=== PATIENT | male | born 1945 | race Caucasian/White ===

== ENCOUNTER 2017-11-08 11:42 | Inpatient (IN) | payer OTHER ==
[~2017-11-08] VITALS: Ht 177.8 cm; Wt 79.2 kg
--- NOTE | 2017-11-08 13:20 | ED ANIMAL BITE/WOUND CHECK ---
History of Present Illness General Chief Complaint: Animal/Insect Bite Stated Complaint: DOG BITE Source: patient Exam Limitations: no limitations Vital Signs & Intake/Output Vital Signs & Intake/Output Vital Signs Date Time Temp Pulse Resp B/P B/P Pulse O2 O2 Flow FiO2 Mean Ox Delivery Rate 11/08 1641 98.9 68 20 138/84 99 Room Air 11/08 1438 98.7 92 18 144/84 98 Room Air 11/08 1205 99.8 99 18 147/81 98 Room Air Allergies Coded Allergies: NO KNOWN ALLERGIES (11/08/17) Triage Note: 72M SUSTAINED DOG BITE, DOG KNOWN TO PT AND UTD WITH SHOTS. LAST TETANUS 7-8 YEARS AGO. PUNCTURE TO RIGHT HAND AND SWELLING. DENIES PAIN AT THIS TIME. AGITATED WITH THIS RN WHEN DISCUSSING RECOMMENDATIONS FOR XRAY AND THAT THEY ONLY WANT IV ANTIBIOTICS. WHEN OFFERED TYLENOL OR MOTRIN PT DECLINED AND SAID "UNASYN WOULD BE GOOD." IV ANTIBIOTICS. WHEN OFFERED TYLENOL OR MOTRIN PT DECLINED AND SAID "UNASYN WOULD BE GOOD." Triage Nurses Notes Reviewed? yes Onset: Gradual Duration: day(s): (1) Timing: no prior history Injury Environment: home Is Injury an Animal Bite? Yes Animal Type: dog, family pet Context of Animal Attack: playing with animal Appearance of Animal: appeared well Animal Immunization Status: up to date Severity: moderate Modifying Factors: Improves With: immobilization. Worsens With: movement. HPI: Patient is a 72-year-old male presenting to the emergency Department chief complaint of right hand pain, swelling and redness worsening since yesterday. Patient reports that he was bitten by family dog who is up-to-date with immunizations. Patient reports that he had his tetanus vaccination 8 years ago. Patient reports mild pain with movement to the right hand. Was seen in a walk- in clinic today who sent to the ER for evaluation. Patient denies taking anything at home to help with symptoms. No nausea or vomiting. Denies chest pain palpitations or shortness of breath. He claims the wound out immediately with peroxide and water. Patient also noticed increasing redness up his arm this morning. No malaise. Eating well drinking well. No history of diabetes. (Luis Antonio SALGUERO,Keysha) Reconcile Medications Aspirin (Ecotrin*) 81 MG TABLET.DR 1 TAB PO DAILY HEART HEALTH (Reported) Atorvastatin Calcium 10 MG TABLET 1 TAB PO DAILY HEART HEALTH (Reported) Multivit-Min/FA/Lycopen/Lutein (Centrum Silver Men Tablet) 300 MCG-600 MCG-300 MCG TABLET 1 TAB PO DAILY GENERAL WELLNESS (Reported) (Kate BUCK,Kendrick Spear) Past History Travel History Traveled to [place] past 21 day No Medical History Any Pertinent Medical History? see below for history Neurological: NONE EENT: NONE Cardiovascular: CARDIAC STENT HEART BLOCK Respiratory: NONE Gastrointestinal: NONE Hepatic: NONE Renal: NONE Musculoskeletal: NONE Psychiatric: NONE Endocrine: NONE Surgical History Surgical History: non-contributory Psychosocial History What is your primary language Scottish Tobacco Use: Never used Family History Hx Contributory? No (Keysha Smyth) Review of Systems Review of Systems Constitutional: Reports: no symptoms. Comments Review of systems: See HPI, All other systems negative. Constitutional, no chills fever or weight loss HEENT: No visual changes no sore throat no congestion Cardiovascular: No chest pain ,palpitation , orthopnea or ankle swelling Skin, no jaundice Respiratory: No dyspnea cough sputum or hemoptysis GI: No nausea no vomiting Muscle skeletal: no back pain, no neck pain, Neurologic: No numbness no confusion Psych: No stress anxiety Immunology: No splenectomy or history of AIDS (Keysha Smyth) Physical Exam Physical Exam General Appearance: well developed/nourished, no apparent distress, alert, awake , comfortable Comments: Well-developed well-nourished person in no acute distress HEENT: Atraumatic, normocephalic. Neck: Normal inspection Back: Nontender Cardiovascular: Regular rate and rhythms no murmurs rubs or gallops, normal JVP Respiratory: Chest nontender. No respiratory distress.breath sounds clear to auscultation bilaterally Extremity: Moderate edema noted over the right thenar eminence of the right hand. Full range of motion of right hand and all digits on the right hand without difficulty or pain. Argon Tester strength is equal and symmetric bilaterally. Radial pulses are 2+ bilaterally. There are 4-6 healing puncture wounds noted in this area. Streaking noted up to the right antecubital fossa. Neuro: Alert oriented x3, motor sensory normal Skin: Moderate erythema over the thenar eminence of the right hand, puncture wounds that appear to be healing over the thenar eminence of the right hand. Red streaking noted up to the right antecubital fossa. Moderately warm to palpation over this area. Psych: Mood and affect is normal, memory and judgment is normal. (Luis Antonio SALGUERO,Keysha) Progress Differential Diagnosis: cellulitis, sepsis, dog bite Plan of Care: Orders Procedure Date/time Status Heart Healthy Diet 11/08 D Active Patient Data 11/08 1532 Active ED Holding Orders 11/08 1523 Active Admit to inpatient 11/08 1523 Active Vital Signs 11/08 1523 Active Code Status 11/08 1523 Active LACTIC ACID 11/08 1413 Complete Add-on Test (ER Only) 11/08 1353 Active Intake & Output 11/08 1309 Active BLOOD CULTURE 11/08 1253 Active BLOOD CULTURE 11/08 1234 Active WESTERGREN SED RATE 11/08 1234 Complete COMPREHENSIVE METABOLIC PANEL 11/08 1234 Complete CBC WITHOUT DIFFERENTIAL 11/08 1234 Complete Laboratory Tests 11/08/17 1419: Lactic Acid 0.8 11/08/17 1310: Anion Gap 15, Estimated GFR > 60, BUN/Creatinine Ratio 23.8, Glucose 96, Calcium 9.3, Total Bilirubin 0.7, AST 28, ALT 39, Alkaline Phosphatase 83, Total Protein 8.1, Albumin 4.6, Globulin 3.5, Albumin/Globulin Ratio 1.3, CBC w Diff NO MAN DIFF REQ, RBC 4.90, MCV 88.3, MCH 30.9, MCHC 35.0, RDW 13.4, MPV 10.1, Gran % 77.2 H, Lymphocytes % 13.7 L, Monocytes % 8.5, Eosinophils % 0.2, Basophils % 0.4, Absolute Granulocytes 7.3 H, Absolute Lymphocytes 1.3, Absolute Monocytes 0.8 H, Absolute Eosinophils 0, Absolute Basophils 0, ESR Westergren 8 Microbiology 11/08 1310 BLOOD: Blood Culture - RECD 11/08 1300 BLOOD: Blood Culture - RECD 11/08 1300 BLOOD: Blood Culture - ORD Spoke with Dr. Boyle, plastics, he will see the patient tomorrow in consult. Recommending IV antibiotics, also recommending a postoperative-type pillow to help him. Try to obtain his pillow from the operating room without success. Patient informed of all imaging results and lab work results. Patient will be for cellulitis. D/W DR WHARTON AND HE AGREES WITH PLAN. Diagnostic Imaging: Viewed by Me: Radiology Read. Discussed w/RAD: Radiology Read. Radiology Impression: PATIENT: SHANE REDMOND PRESENT AGE: 72 PATIENT ACCOUNT NO: [id number] : 46 LOCATION: [facility] ORDERING PHYSICIAN: Keysha SALGUERO SERVICE DATE: 11/08/17 EXAM TYPE: RAD - XRY-HAND, RIGHT EXAMINATION: XR HAND, RIGHT CLINICAL INFORMATION: Dog bite. Cellulitis. COMPARISON: None TECHNIQUE: PA, lateral, and oblique views of the right hand. FINDINGS: No fracture or malalignment. Joint spacing is preserved. No radiopaque foreign body. 2 small foci of scattered subcutaneous air projecting over the distal aspect of the second metatarsal shaft. IMPRESSION : There are a few small scattered foci of subcutaneous air projecting over the mid to distal aspect of the second metatarsal shaft. No fracture or radiopaque foreign body. DICTATED BY: Marino Mendoza MD DATE/TIME DICTATED:11/08/171431 WORKFORCE PLANNER:JAYLEEN DATE/TIME TRANSCRIBED:11/08/171431 CONFIDENTIAL, DO NOT COPY WITHOUT APPROPRIATE AUTHORIZATION. <Electronically signed in Other Vendor System> SIGNED BY: Marino Mendoza MD 11/08/17 4515 (Keysha Smyth) Departure Departure Time of Disposition: 1555 Disposition: STILL A PATIENT Condition: Stable Clinical Impression Primary Impression: Cellulitis Qualifiers: Site of cellulitis: extremity Site of cellulitis of extremity: upper extremity Laterality: right Qualified Code: L03.113 - Cellulitis of right upper limb Referrals: Ha BUCK,David Spear (PCP/Family) Departure Forms: Customer Survey General Discharge Information Admission Note Documentation of Exam: Documentation of any treatments & extenuating circumstances including Concerns Regarding Discharge (functional status, medication knowledge or non-compliance, living conditions, etc.) that warrant an admission rather than observation: Patient requiring several doses of IV antibiotics, plastic consultation, anti- inflammatories, blood cultures return, discharge at this time interval. Patient 's white blood cell count will need to be monitored. (Keysha Smyth) Admission Note Spoke With: Maryjane Mercer MD Documentation of Exam: Documentation of any treatments & extenuating circumstances including Concerns Regarding Discharge (functional status, medication knowledge or non-compliance, living conditions, etc.) that warrant an admission rather than observation: [DR. BOYLE HAS BEEN CONSULTED AND HE WILL SEE PT TOMORROW] PA/HEARING HEALTH TECHNICIAN Co-Sign Statement Statement: ED Attending supervision documentation- [X] I saw and evaluated the patient. I have also reviewed all the pertinent lab results and diagnostic results. I agree with the findings and the plan of care as documented in the PA's/HEARING HEALTH TECHNICIAN's documentation. [X] I have reviewed the ED Record and agree with the PA's/HEARING HEALTH TECHNICIAN's documentation. [] Additions or exceptions (if any) to the PAs/HEARING HEALTH TECHNICIAN's note and plan are summarized below: [SEE ABOVE NOTE] (Kate BUCK,Kendrick Spear)
[2017-11-08 13:37] LABS: ABSOLUTE BASOPHIL COUNT 0 /CUMM (0.0-0.2); ABSOLUTE EOSINOPHIL COUNT 0 /CUMM (0.0-0.7); ABSOLUTE GRANULOCYTE CT 7.3 /CUMM (1.4-6.5); ABSOLUTE LYMPH COUNT 1.3 /CUMM (1.2-3.4); ABSOLUTE MONOCYTE COUNT 0.8 /CUMM (0.10-0.60); BASOPHIL % 0.4 % (0.0-2.0); EOSINOPHIL % 0.2 % (0-5); GRANULOCYTE % 77.2 % (42.2-75.2); HEMATOCRIT 43.3 % (42-52); MEAN CORPUSCULAR HGB 30.9 PG (27.0-31.0); MEAN CORPUSCULAR VOLUME 88.3 FL (80.0-94.0); MEAN PLATELET VOLUME 10.1 FL (7.4-10.4); PLATELET COUNT 147 /CUMM (130-400); RBC DISTRIBUTION WIDTH 13.4 % (11.5-14.5); WHITE BLOOD CELL COUNT 9.5 /CUMM (4.8-10.8)
--- NOTE | 2017-11-08 14:37 | RADIOLOGY REPORT ---
EXAMINATION: XR HAND, RIGHT CLINICAL INFORMATION: Dog bite. Cellulitis. COMPARISON: None TECHNIQUE: PA, lateral, and oblique views of the right hand. FINDINGS: No fracture or malalignment. Joint spacing is preserved. No radiopaque foreign body. 2 small foci of scattered subcutaneous air projecting over the distal aspect of the second metatarsal shaft. IMPRESSION: There are a few small scattered foci of subcutaneous air projecting over the mid to distal aspect of the second metatarsal shaft. No fracture or radiopaque foreign body.
[2017-11-08] MEDS ORDERED: ATORVASTATIN CA10 M1 PO (15:52)
[2017-11-08] MEDS ORDERED: ASPIRIN EC81 M1 PO (15:52)
[2017-11-08] MEDS ORDERED: CENTRUM SILVER1 EAC4 PO (15:54)
--- NOTE | 2017-11-08 16:17 | History & Physical ---
Jhonatan BUCK,[facility] 11/08/17 1616: General Information and HPI MD Statement: I have seen and personally examined SHANE REDMOND and documented this H&P. The patient is a 72 year old M who presented with a patient stated chief complaint of [dog bite]. Source of Information: patient History of Present Illness: 72-year-old male with a past medical history of cad s/p stent presenting for dog bite. The patient states that yesterday he was taking care of his son's dog is who attacked his own dog. The patient states that he tried to picker / packer his son's dog who bit his right hand. The patient called his PCP and was told to go to the ED yesterday. The patient waited until today and went to the urgent care clinic who advised him to come to the emergency department. The patient states that he cleaned the wound with peroxide. He states the hand is somewhat sore and slightly decreased movement. He denies any fevers, headaches, chest pain, shortness breath, abdominal pain, nausea vomiting, changes in elimination. Allergies/Medications Allergies: Coded Allergies: NO KNOWN ALLERGIES (11/08/17) Home Med list Aspirin (Ecotrin*) 81 MG TABLET.DR 1 TAB PO DAILY HEART HEALTH (Reported) Atorvastatin Calcium 10 MG TABLET 1 TAB PO DAILY HEART HEALTH (Reported) Multivit-Min/FA/Lycopen/Lutein (Centrum Silver Men Tablet) 300 MCG-600 MCG-300 MCG TABLET 1 TAB PO DAILY GENERAL WELLNESS (Reported) Past History Travel History Traveled to [place] past 21 day No Medical History Neurological: NONE EENT: NONE Cardiovascular: CARDIAC STENT HEART BLOCK Respiratory: NONE Gastrointestinal: NONE Hepatic: NONE Renal: NONE Musculoskeletal: NONE Psychiatric: NONE Endocrine: NONE Surgical History Surgical History: non-contributory Past Family/Social History Psychosocial History Smoking Status: Former Smoker ETOH Use: denies use Illicit Drug Use: denies illicit drug use Review of Systems Review of Systems Constitutional: Reports: see HPI. Exam & Diagnostic Data Last 24 Hrs of Vital Signs/I&O Vital Signs Date Time Temp Pulse Resp B/P B/P Pulse O2 O2 Flow FiO2 Mean Ox Delivery Rate 11/09 2207 97.9 88 20 122/84 95 Room Air 11/09 2015 96.9 11/09 1815 101.0 11/08 1716 101.0 91 20 154/80 97 Room Air 11/08 1641 98.9 68 20 138/84 99 Room Air 11/08 1438 98.7 92 18 144/84 98 Room Air 11/08 1205 99.8 99 18 147/81 98 Room Air Intake & Output 11/08 1600 11/08 0800 11/08 0000 Intake Total Output Total Balance Patient 183 lb Weight Physical Exam General Appearance Alert, Oriented X3, Cooperative, No Acute Distress Skin right hand cellulitis with multiple streaks Cardiovascular Regular Rate, Normal S1, Normal S2 Lungs Clear to Auscultation, Normal Air Movement Abdomen Normal Bowel Sounds, Soft, No Tenderness Vascular 2+ radial pulses Assessment/Plan Assessment: A: 72-year-old male with a past medical history of cad s/p stent presenting for dog bite cellulitis P: #dog bite cellulitis Patient received tetanus shot in the ED -Continue Unasyn #hx of cad with stents -Continue atorvastatin, #DVT prophylaxis -Continue Lovenox As Ranked By This Provider Problem List: 1. Cellulitis Qualifiers Site of cellulitis: extremity Site of cellulitis of extremity: upper extremity Laterality: right Qualified Code: L03.113 - Cellulitis of right upper limb Core Measures/Misc (04/05) Acute Coronary Syndrome ACS Diagnosis: No Congestive Heart Failure Congestive Heart Failure Diagnosis No Cerebrovascular Accident CVA/TIA Diagnosis: No VTE (View Protocol) VTE Risk Factors Acute Medical Illness No Mechanical VTE Prophylaxis d/t Other No VTE Pharm Prophylaxis d/t NA PharmProphylax ordered Sepsis (View protocol) Sepsis Present: No Maryjane Mercer 11/08/17 1658: Attending MD Review Statement Attending Statement Attending MD Statement: examined this patient, discuss w/resident/PA/RN HYPERBARIC, agreed w/resident/PA/RN HYPERBARIC, discussed with family, reviewed EMR data (avail), discussed with nursing, discussed with case mgmt, reviewed images, amended to note Attending Assessment/Plan: Patient admitted with cellultiis of right hand extending upto right arm after dog bite. Patient said symptoms started yesterday. Hand xray woth few scattered foci of gas. Patient started on iv unasyn cover anaerobes. Recieve Tetanus shot in ER. Pain control. Consult surgery. Ambulatory. Monitor clinically. Wants to get discharged tomorrow. [facility]b [facility]CK[facility] 11/08/17 3382: Resident Review Statement Resident Statement: examined this patient, discussed with international accounting manager, agreed with international accounting manager Other Findings: 72 year old man with past medical history of CAD presenting with right hand redness and pain after a dog bite yesterday. Dog was his son's and is uptodate with vaccinations including rabies. His hand is currently not hurting him anymore, but he does complain of some stiffness in the hand. Physical exam significant for right hand redness and swelling particularly over the thumb and adjacent lateral palm region. Labs including CBC and BEP are unremarkable. Xray of the hand did not show any foreign body or broken bones. Patient received tetanus shot in the ER. Problem list 1. Right hand cellulitis secondary to dog bite 2. History of CAD Plan * Admit to Gen Med * Follow up blood cultures * IV unasyn 3 g Q 6 hrs * Elevate right hand on pillows * Plastic surgery consultation in the AM with Dr. Altamirano * Continue baby aspirin and statin for CAD * Percocet or motrin for pain. * DVT prophylaxis with SC lovenox * Patient is full code
[2017-11-08 17:17] VITALS: BP 154/80
[2017-11-08 22:08] VITALS: BP 122/84
[2017-11-09 06:03] VITALS: BP 144/82
[2017-11-09 08:52] LABS: ABSOLUTE BASOPHIL COUNT 0 /CUMM (0.0-0.2); ABSOLUTE EOSINOPHIL COUNT 0.1 /CUMM (0.0-0.7); ABSOLUTE GRANULOCYTE CT 3.8 /CUMM (1.4-6.5); ABSOLUTE LYMPH COUNT 2.1 /CUMM (1.2-3.4); ABSOLUTE MONOCYTE COUNT 0.7 /CUMM (0.10-0.60); BASOPHIL % 0.5 % (0.0-2.0); EOSINOPHIL % 1.6 % (0-5); GRANULOCYTE % 56.1 % (42.2-75.2); MEAN CORPUSCULAR HGB 30.5 PG (27.0-31.0); MEAN CORPUSCULAR VOLUME 89.8 FL (80.0-94.0); MEAN PLATELET VOLUME 9.9 FL (7.4-10.4); PLATELET COUNT 137 /CUMM (130-400); RBC DISTRIBUTION WIDTH 13.6 % (11.5-14.5); WHITE BLOOD CELL COUNT 6.7 /CUMM (4.8-10.8)
--- NOTE | 2017-11-09 10:16 | PN- Housestaff ---
Jhonatan BUCK,[facility] 11/09/17 1016: Subjective Follow-up For: Dog bite cellulitis Subjective: No acute events overnight. Cellulitis improved. Patient able to move hand more. Asking for discharge Review of Systems Constitutional: Reports: see HPI. Objective Last 24 Hrs of Vital Signs/I&O Vital Signs Date Time Temp Pulse Resp B/P B/P Pulse O2 O2 Flow FiO2 Mean Ox Delivery Rate 11/09 0603 98.4 86 20 144/82 97 11/08 2208 97.9 88 20 122/84 95 Room Air 11/09 2015 96.9 11/08 1816 101.0 11/08 1717 101.0 91 20 154/80 97 Room Air 11/08 1641 98.9 68 20 138/84 99 Room Air Intake & Output 11/09 1600 11/09 0800 11/09 0000 Intake Total 130 130 Output Total Balance 130 130 Intake, IV 130 130 Patient 175 lb 183 lb Weight Weight Bed scale Reported by Patient Measurement Method Physical Exam General Appearance: Alert, Oriented X3, Cooperative Skin: improving cellulitis of hand Cardiovascular: tachycardia Lungs: Clear to Auscultation, Normal Air Movement Abdomen: Normal Bowel Sounds, Soft, No Tenderness Extremities: 2+ radial pulses Assessment/Plan Assessment: A: 72-year-old male with a past medical history of cad s/p stent presenting for dog bite cellulitis P: #dog bite cellulitis Patient received tetanus shot in the ED -transitioned from unasyn to po augmentin -Patient unable to stay until palstic surgery came to evaluate. Spoke to plastic surgery who advised patient to follow up this week. Advised patient to call and make appointment later today. Advised to return for any worsening symptoms, pain , erythema or swelling #hx of cad with stents -Continue atorvastatin, #DVT prophylaxis -Continue Lovenox Problem List: 1. Cellulitis Pain Ratin Pain Location: none Pain Goal: Pain 4 or less Pain Plan: pathway Tomorrow's Labs & Rationales: none Bakari BUCK,[facility] 11/09/17 1201: Attending MD Review Statement Attending Statement Attending MD Statement: examined this patient, discuss w/resident/PA/BIOLOGY SPECIMEN TECHNICIAN, agreed w/resident/PA/BIOLOGY SPECIMEN TECHNICIAN, reviewed EMR data (avail), discussed with nursing, discussed with case mgmt, reviewed images, amended to note Attending Assessment/Plan: Patient seen and examined, overall doing much better. The right hand swelling and erythema has reduced. Patient is admitted with right hand cellulitis secondary to a dog bite. He had a normal white count and he remains afebrile. Patient was treated with Unasyn which she responded well. Blood cultures remained negative. Patient will be switched to oral Augmentin. We recommended that patient should be seen by plastic surgery before he leaves but he wants to leave because he has things to do at home. He does not want to stay. Patient be referred to plastic surgery as an outpatient and was told that he should make an appointment this week. Patient is able to make a fist without any issues and overall clinically he is improved. Medically stable for discharge home on oral antibiotics today. Will alos f/u with PCP.
--- NOTE | 2017-11-09 10:19 | Patient Discharge Instructions ---
Discharge Instructions General Discharge Information Special Instructions: Please follow up with your pcp in 1 week. Please follow up with the plastic surgeon Dr. Favio Altamirano this week. [phone] [facility] [place] [address] Acute Coronary Syndrome Inclusion Criteria At DC or during hospital stay patient has or had the following: ACS DIAGNOSIS No Discharge Core Measures Meds if any: Prescribed or Continued at Discharge Meds if any: NOT Prescribed or Continued at Discharge Congestive Heart Failure Inclusion Criteria At DC or during hospital stay patient has or had the following: CHF DIAGNOSIS No Discharge Core Measures Meds if any: Prescribed or Continued at Discharge Meds if any: NOT Prescribed or Continued at Discharge Cerebrovascular accident Inclusion Criteria At DC or during hospital stay patient has or had the following: CVA/TIA Diagnosis No Discharge Core Measures Meds if any: Prescribed or Continued at Discharge Meds if any: NOT Prescribed or Continued at Discharge Venous thromboembolism Inclusion Criteria VTE Diagnosis No VTE Type NONE VTE Confirmed by (Test) NONE Discharge Core Measures - Per Current guidelines, there needs to be overlap - treatment for the first 5 days of Warfarin therapy. - If discharged on Warfarin prior to 5 days of - overlap therapy, the patient will need to be - assessed for post discharge needs including - *Post discharge parental anticoagulation - *Warfarin and/or parental anticoagulation education - *Follow up date to check INR post discharge At least 5 days overlap therapy as Inpatient No Meds if any: Prescribed or Continued at Discharge Note: Overlap Therapy is Warfarin and Anticoagulant Meds if any: NOT Prescribed or Continued at Discharge
[2017-11-09] MEDS ORDERED: AUGMENTIN 875-1 EACH PO ×2 (10:23→11:15)
--- NOTE | 2017-11-09 23:43 | Discharge Summary ---
Visit Information Visit Dates Admission Date: 11/08/17 Discharge Date: 11/09/17 Hospital Course Course Attending Physician: Puja Villegas MD Primary Care Physician: David Bonner MD Hospital Course: A: 72-year-old male with a past medical history of cad s/p stent presenting for dog bite cellulitis. Problems: #Dog bite cellulitis of R hand Patient received tetanus shot in the ED. Hand XR revealed few small scattered foci of subcutaneous air projecting over the mid to distal aspect of the second metatarsal shaft, no fracture or radiopaque foreign body.He was given 3 doses of IV unasyn which rapidly improved his cellulitis. He was unable to wait until the plastic surgeon came to evaluate his hand. He was discharged with 9 days of Augmentin. He was advised to follow up with plastics (Dr. Favio Altamirano) sometime this week. He was advised to return for any worsening of symptoms, erythema, discharge or pain. #Hx of cad with stents Continued atorvastatin, aspirin Allergies: Coded Allergies: NO KNOWN ALLERGIES (11/08/17) Disposition Summary Disposition Principal Diagnosis: Dog bite R hand cellulitis Additional Diagnosis: None Discharge Disposition: home or self care Discharge Instructions General Discharge Information Code Status: Full Code Patient's Diet: Heart healthy Patient's Activity: As tolerated Follow-Up Instructions/Appts: Please follow up with your pcp in 1 week. Please follow up with the plastic surgeon Dr. Favio Altamirano this week. [phone] [place] [id number] Medications at Discharge Discharge Medications: Continue taking these medications: Atorvastatin Calcium (Atorvastatin Calcium) 10 MG TABLET 1 Tablet ORAL DAILY Qty = 90 Comments: NOT TAKEN IN HOSP Aspirin (Ecotrin*) 81 MG TABLET. 1 Tablet ORAL DAILY Comments: Last Taken:11/09 Time:9AM Multivit-Min/FA/Lycopen/Lutein (Centrum Silver Men Tablet) 300 MCG-600 MCG-300 MCG TABLET 1 Tablet ORAL DAILY Comments: Last Taken:11/09 Time:9AM Start taking the following new medications: Amoxicillin/Potassium Clav (Augmentin 875-125 Tablet) 875 MG-125 MG TABLET 1 Tablet ORAL TWICE DAILY Qty = 18 No Refills Instructions: . Comments: NOT GIVEN IN HOSP Copies To: David Bonner MD
== END 2017-11-09 12:15 | DRG 603 ==
LOC: ERH 11:42 → 2NB 15:23 → ERHI 15:23 → ENRESERV 16:14 → ENTRNSPT 16:35 → EDTRNSPTSTS 16:49 → 2NB 16:52 → CMPTRNSPT 17:08 → 2NB 11-09 09:27 → ENPENDDIS 11-09 11:29 → 2NB 11-09 12:15
PROVIDERS: Internal Medicine; Physician Assistant
DX: L03.113 Cellulitis of right upper limb (principal); I25.10 Atherosclerotic heart disease of native coronary artery without angina pectoris; Z95.5 Presence of coronary angioplasty implant and graft; S61.411A Laceration without foreign body of right hand, initial encounter; W54.0XXA Bitten by dog, initial encounter; Y92.009 Unspecified place in unspecified non-institutional (private) residence as the place of occurrence of the external cause; Z87.891 Personal history of nicotine dependence
CPT/HCPCS: 2NSBP; 36592; 73130-RT; 87040; 90714; 96374; J1650